=== PATIENT | female | born 1975 | race Caucasian/White ===

== ENCOUNTER → 2019-10-05 | Outpatient (CLI) | payer OTHER ==
--- NOTE | 2019-10-05 15:39 | REPMRS ---
Patient History The patient states she has not had a clinical breast exam in over a year. Patient had first child at age 39. Family history of breast cancer at age 32 in sister, unknown cancer in brother. Digital Mammo Screening Bilat: October 05, 2019 - Exam #: [id number] Bilateral CC and MLO view(s) were taken. Technologist: Jojo Aragon, Technologist No prior studies available for comparison. FINDINGS: The breast tissue is heterogeneously dense. This may lower the sensitivity of mammography. There is no evidence of dominant mass, architectural distortion, or grouped microcalcification typical of malignancy. Assessment: BI-RADS/ACR category 1 mammogram. Negative Mammogram. Recommendation Breast MRI of both breasts in 6 months. Routine screening mammogram of both breasts in 1 year (for women over age 40). This patient's Lifetime Breast Cancer RIsk is estimated at 26.2 %. Annual screening Breast MRI scanniing is recommended for patient's whose lifetime risk assessment is over 20%. This mammogram was interpreted with the aid of an FDA-approved computer-aided dectection system. Electronically Signed By: Alfredo Solano MD 10/05/19 1655
== END ==
LOC: M RAD 10:36
PROVIDERS: ATTEND Family Medicine
DX: Z12.31 Encounter for screening mammogram for malignant neoplasm of breast (principal); Z80.3 Family history of malignant neoplasm of breast

== ENCOUNTER → 2020-08-21 | Outpatient (REF) | payer OTHER ==
[2020-08-21 18:16] LABS: APPEARANCE, URINE CLOUDY (CLEAR); BACTERIA, URINE AUTO 3+ (NEGATIVE); BILIRUBIN, URINE AUTO NEGATIVE (NEGATIVE); BLOOD, URINE BLOOD 2+ (NEGATIVE); COLOR, URINE YELLOW (YELLOW); GLUCOSE, URINE (UA) AUTO NEGATIVE (NEGATIVE); KETONE, URINE AUTO NEGATIVE (NEGATIVE); LEUKOCYTE ESTERASE, URINE AUTO 3+ (NEGATIVE); NITRITE, URINE AUTO POSITIVE (NEGATIVE); PROTEIN, URINE AUTO NEGATIVE (NEGATIVE); RBC, URINE AUTO 15 /HPF (0-3); SPECIFIC GRAVITY URINE AUTO 1.015 (1.002-1.035); SQUAMOUS EPITHELIAL CELL UR AU 2 /HPF (0-6); UROBILINOGEN, URINE AUTO 0.2 mg/dL (0.0-2.0); WBC, URINE AUTO TNTC /HPF (0-3)
== END ==
LOC: M LAB REF 17:55
PROVIDERS: ATTEND Physician Assistant Medical
DX: R30.0 Dysuria (principal)

== ENCOUNTER → 2020-09-01 | Outpatient (REF) | payer OTHER | LOC: M LAB REF 16:02 | PROVIDERS: ATTEND Physician Assistant | DX: Z11.59 Encounter for screening for other viral diseases (principal) ==

== ENCOUNTER → 2021-02-28 | Outpatient (CLI) | payer OTHER ==
--- NOTE | 2021-03-01 12:32 | REP ---
INDICATION: JACOBO SCR MAMMO. COMPARISON: 10/05/2019. TECHNIQUE: MLO and CC views bilateral breasts performed with tomosynthesis. The study is submitted to me for interpretation 03/01/2021 for reasons unknown to me. FINDINGS: Moderate fibroglandular tissue is present bilaterally. There is no change in the parenchymal pattern. There is no new mass or architectural distortion. There are tiny calcifications laterally in the left breast. The Volpara volumetric breast density pattern is C. IMPRESSION: BIRADS/ACR category 0, incomplete. Tiny calcifications grouped in the outer left breast. Recommend magnification views to further evaluate. This patient's Tyrer-Cuzick lifetime breast cancer risk assessment score is 26.0%. Supplemental screening MRI of the breasts is recommended in 6 months. This mammogram was interpreted with the aid of an FDA-approved computer-aided detection system. The patient states she had a clinical breast exam in over 1 year ago. The patient letter being requested is M0. RECOMMENDATION: Recommend magnification views left breast calcifications laterally. Recommend supplemental screening MRI of the breasts in 6 months. <Electronically signed by Santo Aguilar > 03/01/21 [id number]
== END ==
LOC: M WHC 14:45
PROVIDERS: ATTEND Nurse Practitioner Primary Care
DX: R92.2 Inconclusive mammogram (principal)

== ENCOUNTER → 2021-04-13 | Outpatient (CLI) | payer OTHER ==
--- NOTE | 2021-04-13 10:08 | REP ---
INDICATION: ADDITIONAL VIEWS LT BREAST. COMPARISON: Prior screening examination 02/28/2021 TECHNIQUE: Digital diagnostic magnified spot compression views of the left breast were obtained in the CC and MLO projections. FINDINGS: The grouping of calcifications seen in the left breast upper outer quadrant vary in size, shape, and radiographic density. IMPRESSION: BIRADS/ACR category 4 mammogram. Suspicious calcifications in the left breast as described above for which biopsy is recommended. The patient letter being requested is M4. RECOMMENDATION: As above <Electronically signed by Momo Buitrago > 04/13/21 [id number]
== END ==
LOC: M WHC 09:24
PROVIDERS: ATTEND Nurse Practitioner Primary Care
DX: R92.2 Inconclusive mammogram (principal); N60.12 Diffuse cystic mastopathy of left breast

== ENCOUNTER → 2021-04-27 | Outpatient (CLI) | payer OTHER | LOC: M PLALAB 12:01 | PROVIDERS: ATTEND Surgery | DX: Z13.71 Encounter for nonprocreative screening for genetic disease carrier status (principal) ==

== ENCOUNTER → 2021-05-23 | Outpatient (CLI) | payer OTHER ==
[~2021-05-23] MED LIST: SENN-80 PO
--- NOTE | 2021-05-23 10:15 | REP ---
INDICATION: Ultrasonographically assess the 3 o'clock position where a suspicious group of calcifications were identified mammographically on 04/13/2021 COMPARISON: No prior ultrasound exams TECHNIQUE: Real-time sonographic evaluation of the left breast at the 3 o'clock position. FINDINGS: A complex irregular 2.2 x 0.4 by 1.2 cm sized area is seen approximately 3.5 cm from the nipple and having numerous tiny internal echogenic foci. IMPRESSION: Left breast ultrasonographic abnormality with tiny echogenic foci consistent with calcifications and for which biopsy is recommended. ACR category 4 <Electronically signed by Momo Buitrago > 05/23/21 1011
== END ==
LOC: M WHC 09:30
PROVIDERS: ATTEND Surgery
DX: R92.8 Other abnormal and inconclusive findings on diagnostic imaging of breast (principal)

== ENCOUNTER → 2021-05-24 | Outpatient (CLI) | payer OTHER ==
[2021-05-24 12:25] VITALS: BP 100/70
--- NOTE | 2021-05-27 19:19 | ROOPDOC ---
[facility] Report Of Operation Report of Operation DATE OF PROCEDURE: 05/24/21 DIAGNOSIS: left breast suspicious lesion PROCEDURE: ultrasound guided biopsy of the left breast suspicious lesion with clip placement SURGEON: Ryan Mccormack BLOOD LOSS: minimal COMPLICATIONS: none Lidocaine 1% LOT [id number] Expiration 10/2024 Sodium Bicarbonate 8.4% LOT [id number] Expiration 10/2021 Hydromark clip LOT [id number] Expiration 03/2024 SHAPE: 3 Bx device: BARD [id number] x10 cm LOT [id number] Expiration 10/2023 Informed consent was obtained. The most common risk and possible complications including bleeding, hematoma, bruising, infection, injury to surrounding structures were explained to the patient and the patient expressed un derstanding. Patient was placed on the bed in the supine position. Appropriate time out was done stating patients name, date of , and the procedure to be performed. The left breast was prepped and draped in the usual fashion. The ultrasound was used to confirm the location of the lesion in the left breast at 3:00 3.5 centimeters from the nipple. Plain Lidocaine 1% and 8.4% sodium bicarbonate 10:1 mix was used to anesthetize the skin, the biopsy site and tissues along the anticipated biopsy tract. Small skin incision was made with blade number 11. BARD Marquee 14G cannula with introducer ([id number]) was inserted through the incision and advanced under the ultrasound guidance to position immediately adjacent to the lesion. Next, the introducer was removed and BARD Marquee 14G biopsy device was places in the cannula. Pre-biopsy imaging, and post-biopsy imaging were captured. Five good core biopsies were taken at various levels of the lesion. Specimen was initially placed in the tray and the specimen radiography was done. Calcifications were seen in the specimen. Next, the specimen was placed in formaldehyde, labeled with appropriate biopsy site and patients name, and sent to pathology for evaluation. Next, the biopsy device was withdrawn and a clip introducer was inserted into the biopsy site via the cannula. SHAPE 3 Hydromark clip was deployed under sonographic guidance. Post-clip placement image was captured. Manual pressure over the biopsy cavity and tract was held after the clip introducer was withdrawn. No bleeding was noted upon removal of the pressure. Post-biopsy mammogram of the left breast was obtained and showed clip in expected position. Postprocedural dressing was placed. Patient tolerated procedure well. Discharge instructions were discussed with the patient and the patient expressed understanding. RYAN MCCORMACK DO May 27, 2021 19:19
== END ==
LOC: M WHCPRO 08:49
PROVIDERS: ATTEND Surgery
DX: D24.2 Benign neoplasm of left breast (principal); N60.22 Fibroadenosis of left breast

== ENCOUNTER → 2021-11-16 | Outpatient (CLI) | payer OTHER | LOC: M WHC 08:36 | PROVIDERS: ATTEND Nurse Practitioner Women's Health | DX: R92.8 Other abnormal and inconclusive findings on diagnostic imaging of breast (principal) | CPT/HCPCS: 77065; G0279 ==

== ENCOUNTER → 2022-03-01 | Outpatient (CLI) | payer OTHER | LOC: M WHC 09:13 | PROVIDERS: ATTEND Nurse Practitioner Women's Health | DX: R92.2 Inconclusive mammogram (principal); Z80.3 Family history of malignant neoplasm of breast; Z91.89 Other specified personal risk factors, not elsewhere classified ==